=== PATIENT | female | born 1985 | race Caucasian/White ===

== ENCOUNTER 2023-08-03 14:03 | Observation (INO) | payer OTHER, SELFPAY ==
[2023-08-03 14:12] VITALS: BP 132/73; BMI 35.2
== END 2023-08-03 15:50 | disposition home or self-care (01) ==
LOC: LDRP 14:03
PROVIDERS: ADMITTING PHYSICIAN Obstetrics & Gynecology
DX: O48.0 Post-term pregnancy (principal); Z3A.40 40 weeks gestation of pregnancy; Z83.3 Family history of diabetes mellitus; Z85.820 Personal history of malignant melanoma of skin
CPT/HCPCS: 59025; 76815; G0378

== ENCOUNTER 2023-08-05 22:50 | Inpatient (IN) | payer OTHER, SELFPAY ==
[2023-08-05 23:20] VITALS: BP 140/73; BMI 28.9
[2023-08-06 00:46] LABS: % Basophils 0.1 % (0-2); % Eosinophils 0.6 % (0-6); % Immature Granulocytes 0.4 % (0-0.5); % Lymphocytes 19.3 % (20.5-51.1); % Monocytes 7.3 % (1.7-9.3); % Neutrophils 72.3 % (42.2-75.2); Absolute Eosinophils 0.1 10^3/uL (0-0.7); Absolute Immature Granulocytes 0.1 10^3/uL (0-0.05); Absolute Lymphocytes 2.3 10^3/uL (1.2-3.4); Absolute Monocytes 0.9 10^3/uL (0.1-0.6); Absolute Neutrophils 8.4 10^3/uL (1.4-6.5); Hematocrit 34.4 % (37.0-47.0); Hemoglobin 11.8 g/dL (12.0-16.0); Mean Corp Hgb Conc. 34.3 g/dL (33.0-37.0); Mean Corpuscular Volume 99.1 fL (81.0-99.0); Mean Platelet Volume 10.8 fL (7.4-10.4); Nucleated Red Blood Cells % 0 %; Platelet Count 211 10^3/uL (130-400); Red Blood Cell Count 3.47 10^6/uL (4.20-5.40); Red Cell Dist. Width 13.5 % (11.5-14.5); White Blood Cell Count 11.6 10^3/uL (4.8-10.8)
[2023-08-06] MEDS: PITOCIN 30 UNITS/NSS 500 ML IV ×2 (01:52→10:48)
[2023-08-06] MEDS: SUBLIMAZE 100 MCG EPIDURAL (03:20)
[2023-08-06] MEDS: FENTANYL/BUPIVACAINE 100 EPIDURAL (03:22)
[2023-08-06] MEDS: LR 1000 IV ×2 (07:00→10:00)
[2023-08-06] MEDS: MOTRIN 600 MG PO (18:19)
[2023-08-07] MEDS: HYDROCORTISONE 2.5% OINTMENT 1 APPLIC TOPICAL (00:15)
[2023-08-07] MEDS: MOTRIN 600 MG PO ×2 (00:15→08:27)
[2023-08-07 06:10] LABS: Hematocrit 30.9 % (37.0-47.0); Hemoglobin 10.6 g/dL (12.0-16.0)
[2023-08-07] MEDS: SENOKOT-S 1 TABLET PO (08:27)
--- NOTE | 2023-08-07 12:43 | CM ---
CM met with new parents Carmelita and Bryant
parents acknowledged listed address. Parents live in home along with their 3 & 6 yo sons
Parents have named their son Andrew
Mom plans to breast feed and has a pump
Parents report they have all supplies for including car seat
Parents plan to take to [facility]
CM is available for d/c needs
[2023-08-07 16:36] LABS: Syphilis/T. pallidum Ab Reflex Negative (Negative)
== END 2023-08-07 14:53 | disposition home or self-care (01) | DRG 807 ==
LOC: LDRP 22:50
PROVIDERS: ADMITTING PHYSICIAN Obstetrics & Gynecology; FAMILY PHYSICIAN Obstetrics & Gynecology
PROC: 10907ZC Drainage of Amniotic Fluid, Therapeutic from Products of Conception, Via Natural or Artificial Opening (ICD-10-PCS; 2023-08-06)
PROC: 10E0XZZ Delivery of Products of Conception, External Approach (ICD-10-PCS; 2023-08-06)
PROC: 0HQ9XZZ Repair Perineum Skin, External Approach (ICD-10-PCS; 2023-08-06)
DX: O48.0 Post-term pregnancy (principal); Z37.0 Single live birth; Z3A.40 40 weeks gestation of pregnancy; O70.0 First degree perineal laceration during delivery; O76 Abnormality in fetal heart rate and rhythm complicating labor and delivery; Z85.820 Personal history of malignant melanoma of skin; O77.0 Labor and delivery complicated by meconium in amniotic fluid; Z83.3 Family history of diabetes mellitus
CPT/HCPCS: 88307; 85014; 85018; 85025; 86780; 86850; 86900; 86901

== ENCOUNTER → 2024-03-25 10:25 | Outpatient (REF) | payer OTHER, SELFPAY | LOC: HWRAD 10:25 | PROVIDERS: ATTENDING PHYSICIAN Internal Medicine | DX: R05.9 Cough, unspecified (principal) | CPT/HCPCS: 71046 ==

== ENCOUNTER 2025-04-12 19:51 | Inpatient (IN) | payer OTHER, SELFPAY ==
[2025-04-12 20:43] VITALS: BP 123/75; BMI 36.4
[2025-04-12] MEDS: LR 1000 IV (21:24)
[2025-04-12 21:38] LABS: Hematocrit 35.8 % (37.0-47.0); Hemoglobin 12.2 g/dL (12.0-16.0); Mean Corp Hgb Conc. 34.1 g/dL (33.0-37.0); Mean Corpuscular Volume 100.8 fL (81.0-99.0); Nucleated Red Blood Cells % 0 %; Platelet Count 201 10^3/uL (130-400); Red Cell Dist. Width 13.5 % (11.5-14.5)
[2025-04-12] MEDS: CYTOTEC 50 MICROGRAM PO (23:13)
[2025-04-13] MEDS: LR 1000 IV ×3 (00:22→09:01)
[2025-04-13] MEDS: PITOCIN 30 UNITS/NSS 500 ML IV ×2 (04:08→18:11)
[2025-04-13] MEDS: SUBLIMAZE 100 MCG EPIDURAL (08:27)
[2025-04-13] MEDS: FENTANYL/BUPIVACAINE 100 EPIDURAL ×2 (08:28→15:49)
[2025-04-13] MEDS: TRANEXAMIC ACID 100 IV (18:12)
[2025-04-13] MEDS: COLACE 100 MG PO (20:13)
[2025-04-14] MEDS: TYLENOL 650 MG PO (03:14)
[2025-04-14] MEDS: MOTRIN 600 MG PO (03:14)
[2025-04-14 06:43] LABS: Hematocrit 31.3 % (37.0-47.0); Hemoglobin 10.5 g/dL (12.0-16.0)
[2025-04-14] MEDS: COLACE 100 MG PO ×2 (09:29→20:41)
[2025-04-14] MEDS: PRENATAL PLUS 1 TABLET PO (09:29)
[2025-04-14 14:04] LABS: Syphilis/T. pallidum Ab Reflex Negative (Negative)
[2025-04-15] MEDS: TYLENOL 650 MG PO (03:09)
[2025-04-15] MEDS: PRENATAL PLUS 1 TABLET PO (08:06)
[2025-04-15] MEDS: COLACE 100 MG PO (08:07)
== END 2025-04-15 14:45 | disposition home or self-care (01) | DRG 807 ==
LOC: LDRP 19:51
PROVIDERS: Obstetrics & Gynecology; ADMITTING PHYSICIAN Obstetrics & Gynecology; FAMILY PHYSICIAN Physician Assistant Medical
PROC: 3E0DXGC Introduction of Other Therapeutic Substance into Mouth and Pharynx, External Approach (ICD-10-PCS; 2025-04-12)
PROC: 0HQ9XZZ Repair Perineum Skin, External Approach (ICD-10-PCS; 2025-04-13)
PROC: 3E033VJ Introduction of Other Hormone into Peripheral Vein, Percutaneous Approach (ICD-10-PCS; 2025-04-13)
PROC: 10907ZC Drainage of Amniotic Fluid, Therapeutic from Products of Conception, Via Natural or Artificial Opening (ICD-10-PCS; 2025-04-13)
PROC: 10E0XZZ Delivery of Products of Conception, External Approach (ICD-10-PCS; 2025-04-13)
DX: O76 Abnormality in fetal heart rate and rhythm complicating labor and delivery (principal); Z37.0 Single live birth; O70.0 First degree perineal laceration during delivery; Z3A.39 39 weeks gestation of pregnancy
CPT/HCPCS: 36415; 85014; 85018; 85025; 86780; 86850; 86900; 86901; 88307